=== PATIENT | male | born 1965 | race Caucasian/White ===

== ENCOUNTER 2019-03-23 16:49 | Observation (INO) ==
[2019-03-23] MEDS ORDERED: 0.9 % Sodium Chloride 1,000 ML IVC SCH (19:30)
--- NOTE | 2019-03-23 19:53 | Acute Care Surgery H&P ---
Date of Encounter: 03/23/19 Time of Encounter: 21:40 Assessment and Plan (1) Acute appendicitis Current Visit: Yes Status: Acute The assessment and plan as outlined above was discussed with the patient and/or family members who expressed understanding and agreement. All questions were answered. We will plan laparoscopic appendectomy later this evening. I discussed the risks and benefits with the patient understands wishes to proceed. Qualifiers: Acute appendicitis type: with localized peritonitis Appendicitis gangrene presence: unspecified whether gangrene present Appendicitis perforation presence: unspecified whether perforation present Appendicitis abscess presence: unspecified whether abscess present Qualified Code(s): K35.30 - Acute appendicitis with localized peritonitis, without perforation or gangrene History of Present Illness Chief complaint: Right lower quadrant abdominal pain HPI: Mr. Richardson is a 53 year old male Who began having abdominal pain last evening. This was initially lower abdominal midline and suprapubic. This was associated with nausea. Over the next 12 hours the pain localized to the right lower quadrant. He had severe pain with motion. He was febrile. He sought evaluation in the emergency room at [facility]. A CAT scan of the abdomen demonstrated acute appendicitis. The patient was transferred to [facility] for further surgical care. Upon transfer he complains bitterly of right lower quadrant abdominal pain and pain with motion. He is anorexic. He has been nothing by mouth since last evening, however, he did have a sip of water at 3:00 today. Next I personally reviewed the CAT scan of the abdomen. Findings are consistent with acute appendicitis. There is a good deal of periappendiceal inflammation, however, there is not a phlegmon or abscess. Past Med Surg Social Fam HX - Past Medical History Medical history: no medical history Psychiatric history: no psych history - Past Surgical History Surgical History: no surgical history - Social History Smoking Status: Never smoker Smokeless Tobacco Status: No Alcohol use: none Drug use: none - Family History Father Name: Tru Richardson Age: 85 Family Member Ethnicity: Non- Living Status: Still Living Hx Family Cardiac Disorders: Yes (CABAG) Mother Name: Janna Rosa Age: 75 Family Member Ethnicity: Non- Living Status: Still Living Hx Family Respiratory Disorders: Yes (COPD) Medications and Allergies Hydrochlorothiazide [Microzide] 12.5 mg PO DAILY 03/23/19 [History] Losartan [Cozaar] 50 mg PO DAILY 03/23/19 [History] Tamsulosin HCl [Flomax] 1 tab PO DAILY 03/23/19 [History] Allergy/AdvReac Type Severity Reaction Status Date / Time No Known Allergies Allergy Verified 03/23/19 16:06 Review of Systems All systems PM: The remainder of the systems were reviewed and are negative General Surgery Exam Initial Vital Signs Temp Pulse Resp BP Pulse Ox 98.5 F 97 16 109/70 94 03/23/19 18:22 03/23/19 18:22 03/23/19 18:22 03/23/19 18:22 03/23/19 18:22 - General physical appearance well developed, well nourished, moderate distress, moderate pain - Neck no masses, no bruits, trachea midline, no lymphadectomy, no venous distension - Respiratory normal expansion, normal respiratory effort, clear to auscultation - Cardiovascular Cardiovascular exam: Present: RRR, no murmurs/rubs/gallops - Abdomen Abdomen general surgery: Present: bowel sounds present, tender Abdominal Tenderness: Present: RLQ (The patient has involuntary guarding and rebound tenderness localized over McBurney's point) - Integumentary Integumentary general surgery: Present: warm and dry, no abnormal pigmentation - Neurologic Present: CN 2-12 grossly intact, normal coordination, normal sensation - Psychiatric Psychiatric general surgery: Present: appropriate, oriented to person, oriented to place, oriented to time, speech is normal, memory intact Results - Labs All other labs normal. Laboratory values from [facility] are reviewed. Leukocytosis 12,000. Hemoglobin and hematocrit are normal. Platelets are normal. Electrolytes are normal. Bilirubin is slightly elevated at 1.8. - Imaging CT scan - abdomen: image reviewed (I personally reviewed the CAT scan of the abdomen. Findings are consistent with acute appendicitis. There is a good deal of periappendiceal inflammation but no discernible phlegmon or abscess)
[2019-03-24] MEDS ORDERED: Ondansetron 4 MG/2 ML VIAL IVP SCH
--- NOTE | 2019-03-24 03:07 | Anesthesia Evaluation PreOp ---
Date of Encounter: 03/24/19 Time of Encounter: 03:15 - Past History Planned Operation: Lap Appendectomy Cardiac History: Denies any Significant Hx Pulmonary History: Denies Any Significant HX [employer] History: Denies Any Significant HX Other Medical History: Denies Any Significant HX Anesthesia History: No Prior Anesthetic Complications Alcohol Use: none Drug use: none Medications and Allergies Hydrochlorothiazide [Microzide] 12.5 mg PO DAILY 03/23/19 [History] Losartan [Cozaar] 50 mg PO DAILY 03/23/19 [History] Tamsulosin HCl [Flomax] 0.4 mg PO DAILY 03/23/19 [History] Allergy/AdvReac Type Severity Reaction Status Date / Time No Known Allergies Allergy Verified 03/23/19 16:06 - Meds/Allergy Pre-op Review Medications Reviewed: Yes Allergies Reviewed: Yes Beta Blockers on Current Med List: No Anesthesia Results - Labs Laboratory Tests 03/23/19 03/23/19 16:27 16:27 Hgb 16.0 Hct 45.2 Plt Count 135 L Sodium 137 Potassium 3.7 BUN 13 Creatinine 1.21 Anesthesia Exam O2 Sat Height 1.75 m Weight 96 kg O2 Sat by Pulse Oximetry 94 O2 Sat by Pulse Oximetry 94 Vital Signs Temp Pulse Resp BP Pulse Ox 98.5 F 97 16 109/70 94 03/23/19 18:22 03/23/19 18:22 03/23/19 18:22 03/23/19 18:22 03/23/19 18:22 Height: 5'9 Weight: 211 lbs NPO (# of Hours): MN Pain Scale: 0 - HEENT Pupil (Motor): Pupils equal, EOMI Teeth: Normal Oral Opening: Greater than 3 - [employer] LOC: Oriented [employer] Motor: Normal RUE, Normal LUE, Normal RLE, Normal LLE, Normal Face [employer] Sensory: Normal: RUE, LUE, RLE, LLE, Face - Cardiac Rhythm: Regular Murmur: None JVD: No Carotid Bruit: No - Pulmonary Breath Sounds: bilateral Clear Respiratory Effort: Symmetrical Anesthesia Assess/Plan ASA Score: 1 Level of consciousness: Cooperative, Oriented Anesthetic Plan: General Autologous Blood: No Monitoring Plan: Standard Monitors Recovery Plan: PACU (Discussed GA, agrees to proceed)
[2019-03-24] MEDS ORDERED: Acetaminophen IV 1,000 MG/100 ML INFUS..BTL ONE (03:29)
[2019-03-24] MEDS ORDERED: Famotidine 20 MG/2 ML VIAL ONE (03:29)
[2019-03-24] MEDS ORDERED: Ondansetron 4 MG/2 ML VIAL IVP ONE (03:36)
[2019-03-24] MEDS ORDERED: *HR* OxyCODONE Immed Rel 5 MG TABLET PO PRN (03:36)
[2019-03-24] MEDS ORDERED: *HR* Promethazine 25 MG/ML VIAL IVP PRN (03:36)
[2019-03-24] MEDS ORDERED: Famotidine 20 MG/2 ML VIAL IVP ONE (03:37)
[2019-03-24] MEDS ORDERED: Acetaminophen IV 1,000 MG/100 ML INFUS..BTL IVPB ONE (03:37)
[2019-03-24] MEDS ORDERED: *HR* Midazolam HCl 2 MG/2 ML VIAL ONE (03:41)
[2019-03-24] MEDS ORDERED: Lidocaine -MPF 2% 2 ML VIAL ONE (03:41)
[2019-03-24] MEDS ORDERED: *HR* FentaNYL (PF) 100 MCG/2 ML VIAL ONE (03:41)
[2019-03-24] MEDS ORDERED: *HR* Rocuronium Bromide 50 MG/5 ML VIAL ONE (03:41)
[2019-03-24] MEDS ORDERED: *HR* Propofol 200 MG/20 ML VIAL IVP ONE (03:41)
[2019-03-24] MEDS ORDERED: Dexamethasone 4 MG/ML VIAL ONE (03:41)
[2019-03-24] MEDS ORDERED: CefOXitin 1,000 MG VIAL ONE (03:55)
[2019-03-24] MEDS ORDERED: *HR* PHENYLEPHRINE 1,000 MCG/10 ML SYRINGE IVP ONE (04:22)
[2019-03-24] MEDS ORDERED: Ketorolac 30 MG/ML VIAL ONE (04:50)
--- NOTE | 2019-03-24 05:04 | Operative Note ---
Date of procedure: 03/24/19 Pre-op diagnosis: Acute appendicitis Post-op diagnosis: other (Acute gangrenous appendicitis with pus in the abdomen) Procedure: Laparoscopic appendectomy Anesthesia: MICHELE Surgeon: Monty Lopez Was there an assistant infant toddler teacher present: No Estimated blood loss (cc): 10 Specimen: Appendix Condition: stable Disposition: PACU Procedure in Detail: After informed consent the patient was taken major operating suite placed in the supine position and given adequate general anesthetic. The abdomen is prepped and draped in sterile fashion utilizing ChloraPrep and standard draping techniques. Timeout was taken and the patient is identified. Made a vertical midline incision below the umbilicus and dissected down to level of fascia. 2 traction stitches were placed using 0 Vicryl. I placed a Bowling trocar into the abdomen and the abdomen was insufflated to 15 mmHg pressure of CO2. I placed a 5 mm trocar in the suprapubic area and a 12 mm trocar in the right upper quadrant. The appendix was identified. The appendix had acute inflammatory adhesions to the cecum and retroperitoneum. These adhesions were divided. The appendix was gangrenous and there was visible pus on the surface of the appendix. The appendix was divided off the cecum with a laparoscopic stapler using gastrointestinal load. The mesoappendix divided before the vascular stapler could be fired. The appendix was removed in the specimen bag. I visualized the mesial appendix stump and controlled this with 3 10 mm clips. Hemostasis was excellent. I irrigated with copious amounts of antibiotic containing solution. There was no evidence of bleeding. Cecal staple line was intact. All trochars were removed. Fascia was closed with 0 Vicryl. Skin was closed with 2-0 Vicryl and 4-0 Vicryl. He tolerated the procedure well
--- NOTE | 2019-03-24 05:25 | Anesthesia Evaluation Post Op ---
Date of Encounter: 03/24/19 Time of Encounter: 17:30 - Vital Signs Vital Signs: Vital Signs/O2 Sat/Glucose, Most Current Temp Pulse Resp BP Pulse Ox 03/24/19 05:20 86 16 111/80 98 03/24/19 05:10 97.8 F 90 18 114/74 93 - Lungs Lungs: Clear Ascult./Percussion - Airway Airway: Non-obstructed - Cardiovascular Regular Rate - Mental Status Mental Status: Alert & Oriented, Answers Appropriately - Pain Pain Scale: 0 - Nausea Vomiting Nausea Vomiting: Not Present - Hydration Hydration: Ice chips - Discharge PostOp Status: Transfer Patient to floor
[2019-03-24] MEDS ORDERED: 0.9 % Sodium Chloride 1,000 ML IVC SCH (05:53)
[2019-03-24] MEDS ORDERED: 0.9 % Sodium Chloride 1,000 ML ONE (05:58)
[2019-03-24] MEDS: Ondansetron 4 MG/2 ML VIAL IVP SCH ×2 (06:30→14:09)
[2019-03-24] MEDS ORDERED: cefOXitin 2,000 MG in Water for inj. (sterile) 20 ML IVP SCH ×2 (08:00)
[2019-03-24 09:24] VITALS: BP 109/77
--- NOTE | 2019-03-24 10:40 | Discharge Summary ---
Orders not resulted at time of discharge: Pending orders 03/24/19 05:01 Surgical Pathology [PTH] Routine Date of Encounter: 03/24/19 Time of Encounter: 09:00 - Discharge Diagnosis (1) Acute appendicitis Priority: Primary Status: Acute Qualifiers: Appendicitis perforation presence: without perforation Appendicitis abscess presence: without abscess Qualified Code(s): K35.30 - Acute appendicitis with localized peritonitis, without perforation or gangrene General Surgery Exam Initial Vital Signs Temp Pulse Resp BP Pulse Ox 98.5 F 97 16 109/70 94 03/23/19 18:22 03/23/19 18:22 03/23/19 18:22 03/23/19 18:22 03/23/19 18:22 - General physical appearance no distress, no pain - Eyes PERRL, normal ocular movement - ENT normal mucosa, no congestion - Neck trachea midline, no venous distension - Respiratory normal respiratory effort, clear to auscultation - Cardiovascular Cardiovascular exam: Present: RRR, JVD - Abdomen Abdomen general surgery: Present: bowel sounds present, soft, tender Abdominal Tenderness: Present: RLQ - Incision Incision: Present: clean and dry, intact - Genitourinary Present: normal penis with no external lesions - Integumentary Integumentary general surgery: Present: warm and dry - Neurologic Present: CN 2-12 grossly intact, normal coordination - Musculoskeletal Present: normal posture - Psychiatric Psychiatric general surgery: Present: A&Ox3, appropriate - Hospital Course Hospital course: Mr. Richardson is a 53 year old male - Time Spent with Patient Total time spent providing and/or coordinating discharge services: Less than 30 minutes - Discharge Medications Prescriptions: New Oxycodone HCl/Acetaminophen [Percocet 5-325 mg Tablet] 1 each PO Q4HR 7 Days #28 tablet Ciprofloxacin [Cipro] 500 mg PO 1-2XD #10 [facility] [place]NIDAZOLE [Flagyl] 500 mg PO TID #15 tablet Continued Hydrochlorothiazide [Microzide] 12.5 mg PO DAILY Tamsulosin HCl [Flomax] 0.4 mg PO DAILY Losartan [Cozaar] 50 mg PO DAILY Home Medications: Hydrochlorothiazide [Microzide] 12.5 mg PO DAILY 03/23/19 [History] Losartan [Cozaar] 50 mg PO DAILY 03/23/19 [History] Tamsulosin HCl [Flomax] 0.4 mg PO DAILY 03/23/19 [History] Ciprofloxacin [Cipro] 500 mg PO 1-2XD #10 [facility]..rec 03/24/19 [Rx] Oxycodone HCl/Acetaminophen [Percocet 5-325 mg Tablet] 1 each PO Q4HR 7 Days #28 tablet 03/24/19 [Rx] metroNIDAZOLE [Flagyl] 500 mg PO TID #15 tablet 03/24/19 [Rx] Allergies/Adverse Reactions: Allergy/AdvReac Type Severity Reaction Status Date / Time No Known Allergies Allergy Verified 03/23/19 16:06 Date of admission: 03/23/19 18:05 Primary care physician: PCP NONE Discharging clinician: Felisha King Anticipated date of discharge: 03/24/19 - Patient Status Disposition: Home, Self-Care Condition: Good Functional capacity at discharge: independent ambulation Overall status at discharge: patient is back to baseline - Discharge Instructions Instructions: Laparoscopic Appendectomy (DC) Follow Up With: Cat Cummings MACHINIST [employer] [Advanced Practice Nurse] - Additional Instructions: May shower. Remove band-aids. Shower and gently soap over the steri-strips. Leave steri-strips in place. Take pain med and antibiotic as prescribed. Call [facility] at [phone] for an acute care surgery follow-up appointment if not given one at the time of discharge. Regular diet. No driving until pain free and no longer taking pain medicine. No heavy lifting or straining >20 pounds. May return to work in 3-5 days if lifting restrictions can be abided by. If not, then return to work in approximately 2 weeks after follow-up appointment. - Diet and Activity Activity: other (May shower. Remove band-aids. Shower and gently soap over the steri-strips. Leave steri-strips in place. Take pain med and antibiotic as prescribed. Call [facility] at [phone] for an acute care surgery follow-up appointment if not given one at the time of discharge. Regular diet. No driving until pain free and no longer taking pain medicine. No heavy lifting or straining >20 pounds. May return to work in 3-5 days if lifting restrictions can be abided by. If not, then return to work in approximately 2 weeks after follow-up appointment.) Diet: advance to your usual diet
== END 2019-03-24 15:10 | disposition home or self-care (01) ==
LOC: 3ANU
PROVIDERS: ADMIT Surgery; ATTEND Surgery